=== PATIENT | male | born 1950 | race American Indian/Alaskan Native ===

== ENCOUNTER 2019-02-13 12:19 | Inpatient (IN) | payer MEDICARE ==
--- NOTE | 2019-02-13 12:42 | Event Note ---
ED Screening Note ED Screening Note: pt presents with generalized weakness 4 days ago +dizziness, +room spinning nausea denies any unilateral weakness pt is from [place] no V/D denies CALLEJAS denies vision changes PMHx HTN, HIV on antivirals This initial assessment/diagnostic orders/clinical plan/treatment(s) is/are subject to change based on patients health status, clinical progression and re- assessment by fellow clinical providers in the ED. Further treatment and workup at subsequent clinical providers discretion. Patient/guardian urged not to elope from the ED as their condition may be serious if not clinically assessed and managed. Initial orders include: labs, EKG, CT head, UA
[2019-02-13 13:17] LABS: Basophils % (Auto) 0.6 % (0.0-1.8); Eosinophils # (Auto) 0.3 K/mm3 (0.0-0.4); Eosinophils % (Auto) 4.4 % (0.0-4.3); Hematocrit 42.9 % (35.5-45.6); Hemoglobin 13.7 gm/dl (11.8-15.2); Lymphocytes # (Auto) 2.1 K/mm3 (1.2-5.4); Lymphocytes % (Auto) 30.6 % (13.4-35.0); Mean Corpuscular HGB Conc 32 % (32-34); Mean Corpuscular Volume 77 fl (84-94); Monocytes # (Auto) 0.5 K/mm3 (0.0-0.8); Monocytes % (Auto) 7.6 % (0.0-7.3); Platelet Count 279 K/mm3 (140-440); Red Cell Distribution Width 17.4 % (13.2-15.2)
[2019-02-13 13:25] LABS: Mucus,Urine FEW /HPF
[2019-02-13 13:26] LABS: Bilirubin,Urine NEG (Negative); Blood,Urine NEG (Negative); Color,Urine Yellow (Yellow); Urobilinogen,Urine < 2.0 mg/dL (<2.0)
[2019-02-13 13:47] LABS: Alanine Aminotransferase 24 units/L (7-56); Albumin 3.9 g/dL (3.9-5); BUN/Creatinine Ratio 9; Blood Urea Nitrogen 11 mg/dL (9-20); Calcium 9.3 mg/dL (8.4-10.2); Hemolysis Index 7
[2019-02-13] MEDS ORDERED: ZOFRAN IV ONE (14:17)
[2019-02-13] MEDS ORDERED: NACL 0.9% 1000 ML 1,000 ML IV ONE (14:17)
[2019-02-13] MEDS ORDERED: ANTIVERT PO ONE (14:17)
--- NOTE | 2019-02-13 14:30 | Cat Scan Report ---
CT HEAD WITHOUT CONTRAST INDICATION : Dizziness for 4 or 5 days. TECHNIQUE: Axial imaging performed from the skull apex through the skull base without the use of con trast. Sagittal and coronal reformatted images. All CT scans at this location are performed using C T dose reduction for ALARA by means of automated exposure control. COMPARISON: None FINDINGS: Parenchyma: Minimal nonspecific chronic ischemic changes in the white matter are identified which ap pears appropriate for this patient's age. The remaining brain parenchyma demonstrates normal attenuat ion. No evidence for hemorrhage, mass, acute infarct or extra-axial fluid collection. Ventricles: Ventricles are normal in size and appear symmetric. Bones: No acute osseous abnormality. Sinuses: There is mild mucosal thickening throughout the left sphenoid sinus. The remaining sinuses and mastoid air cells are well-aerated. Soft tissues: Soft tissues including the orbits appear normal. IMPRESSION: Mild nonspecific chronic white matter changes. No acute intracranial process. Mild chroni c left sphenoid sinusitis. Signer Name: Armani Mart Jr, MD Signed: 02/13/2019 2:26 PM Workstation Name: [id number]
--- NOTE | 2019-02-13 14:36 | Emergency Department Report ---
ED General Adult HPI - General Chief complaint: Weakness Stated complaint: WEAKNESS/NAUSEA Time Seen by Provider: 02/13/19 12:40 Source: patient Mode of arrival: Ambulatory Limitations: No Limitations - History of Present Illness Initial comments: pt is a 68 yo male who presents with generalized weakness that began 4 days ago. states he has associated dizziness that feels like the room is spinning. pt endorses nausea. he denies any unilateral weakness,numbness, CALLEJAS, vision changes. pt is from [facility]. PMHx HTN, HIV on antivirals. Pt states he just got back on his antivirals 4 days ago and began to experience the symptoms after, he states he has been taking it on an empty stomach even though it says to take with food, he states he believes thats why he is having symptoms. pt also uses crack cocaine, last used 6 days ago, states he previously [facility]," states he had a normal stress test about 3 years ago. pt denies any hx of VT, denies any stents. - Related Data Home Medications Medication Instructions Recorded Confirmed Last Taken Atazanavir [Reyataz] 300 mg PO DAILY 02/13/19 02/13/19 1 Day Ago ~02/12/19 AtorvaSTATin [Lipitor] 10 mg PO QDAY 02/13/19 02/13/19 1 Day Ago ~02/12/19 Emtricitabine/Tenofov Alafenam 1 tab PO QDAY 02/13/19 02/13/19 1 Day Ago [Descovy 200-25 mg Tablet] ~02/12/19 Ritonavir [Norvir] 100 mg PO QDAY 02/13/19 02/13/19 1 Day Ago ~02/12/19 Sulfamethoxazole/Trimethoprim 1 each PO QDAY 02/13/19 02/13/19 1 Day Ago [Bactrim DS TAB] ~02/12/19 Umeclidinium [place] [Incruse 62.5 mcg IH QDAY 02/13/19 02/13/19 1 Day Ago Ellipta 62.5MCG] ~02/12/19 amLODIPine [Norvasc] 10 mg PO DAILY 02/13/19 02/13/19 2 Days Ago ~02/11/19 Allergies Allergy/AdvReac Type Severity Reaction Status Date / Time No Known Allergies Allergy Verified 08/13/19 17:32 ED Review of Systems ROS: Stated complaint: WEAKNESS/NAUSEA Other details as noted in HPI Comment: All other systems reviewed and negative ED Past Medical Hx - Past Medical History Previous Medical History?: Yes Hx HIV: Yes - Social History Smoking Status: Current Every Day Smoker Substance Use Type: None - Medications Home Medications: Home Medications Medication Instructions Recorded Confirmed Last Taken Type Atazanavir [Reyataz] 300 mg PO DAILY 02/13/19 02/13/19 1 Day Ago History ~02/12/19 AtorvaSTATin [Lipitor] 10 mg PO QDAY 02/13/19 02/13/19 1 Day Ago History ~02/12/19 Emtricitabine/Tenofov Alafenam 1 tab PO QDAY 02/13/19 02/13/19 1 Day Ago History [Descovy 200-25 mg Tablet] ~02/12/19 Ritonavir [Norvir] 100 mg PO QDAY 02/13/19 02/13/19 1 Day Ago History ~02/12/19 Sulfamethoxazole/Trimethoprim 1 each PO QDAY 02/13/19 02/13/19 1 Day Ago History [Bactrim DS TAB] ~02/12/19 Umeclidinium [place] [Incruse 62.5 mcg IH QDAY 02/13/19 02/13/19 1 Day Ago History Ellipta 62.5MCG] ~02/12/19 amLODIPine [Norvasc] 10 mg PO DAILY 02/13/19 02/13/19 2 Days Ago History ~02/11/19 ED Physical Exam - General Limitations: No Limitations General appearance: alert, in no apparent distress - Head Head exam: Present: atraumatic, normocephalic - Eye Eye exam: Present: normal appearance, PERRL, EOMI. Absent: nystagmus, periorbital swelling, periorbital tenderness - ENT ENT exam: Present: normal orophraynx, mucous membranes moist - Respiratory Respiratory exam: Present: normal lung sounds bilaterally. Absent: respiratory distress, wheezes, rales, rhonchi, stridor, chest wall tenderness, accessory muscle use, decreased breath sounds, prolonged expiratory - Cardiovascular Cardiovascular Exam: Present: regular rate, normal rhythm, normal heart sounds. Absent: systolic murmur, diastolic murmur, rubs, gallop - Neurological Exam Neurological exam: Present: alert, oriented X3, CN II-XII intact, normal gait. Absent: motor sensory deficit - Psychiatric Psychiatric exam: Present: normal affect, normal mood - Skin Skin exam: Present: warm, dry, intact ED Course Vital Signs 02/13/19 02/13/19 02/13/19 12:40 15:45 18:40 Temperature 97.8 F Pulse Rate 65 70 Respiratory 18 16 16 Rate Blood Pressure 137/89 148/76 [Left] O2 Sat by Pulse 98 98 Oximetry - Consultations Consultation #1: 02/13/19 16:[address] Mcnamara, hospitalist who will admit to the hospital and accept and resume care of patient, asked if I would bridge orders to tele and admit obs. ED Medical Decision Making - Lab Data Result diagrams: 02/13/19 12:48 02/13/19 12:48 Lab Results 02/13/19 02/13/19 02/13/19 Range/Units 12:48 12:48 12:48 WBC 6.8 (4.5-11.0) K/mm3 RBC 5.60 H (3.65-5.03) M/mm3 Hgb 13.7 (11.8-15.2) gm/dl Hct 42.9 (35.5-45.6) % MCV 77 L (84-94) fl MCH 24 L (28-32) pg MCHC 32 (32-34) % RDW 17.4 H (13.2-15.2) % Plt Count 279 (140-440) K/mm3 Lymph % (Auto) 30.6 (13.4-35.0) % [place] % (Auto) 7.6 H (0.0-7.3) % Eos % (Auto) 4.4 H (0.0-4.3) % Baso % (Auto) 0.6 (0.0-1.8) % Lymph # 2.1 (1.2-5.4) K/mm3 [place] # 0.5 (0.0-0.8) K/mm3 Eos # 0.3 (0.0-0.4) K/mm3 Baso # 0.0 (0.0-0.1) K/mm3 Seg Neutrophils % 56.8 (40.0-70.0) % Seg Neutrophils # 3.9 (1.8-7.7) K/mm3 Sodium 137 (137-145) mmol/L Potassium 4.6 (3.6-5.0) mmol/L Chloride 98.8 (98-107) mmol/L Carbon Dioxide 27 (22-30) mmol/L Anion Gap 16 mmol/L BUN 11 (9-20) mg/dL Creatinine 1.2 (0.8-1.5) mg/dL Estimated GFR > 60 ml/min BUN/Creatinine Ratio 9 % Glucose 106 H (75-100) mg/dL Calcium 9.3 (8.4-10.2) mg/dL Phosphorus 2.70 (2.5-4.5) mg/dL Magnesium 2.00 (1.7-2.3) mg/dL Total Bilirubin 2.30 H (0.1-1.2) mg/dL AST 27 (5-40) units/L ALT 24 (7-56) units/L Alkaline Phosphatase 67 (35-129) units/L CK-MB (CK-2) 4.9 H (0.0-4.0) ng/mL Troponin T 0.056 H (0.00-0.029) ng/mL Total Protein 8.1 (6.3-8.2) g/dL Albumin 3.9 (3.9-5) g/dL Albumin/Globulin Ratio 0.9 % Triglycerides 197 H (2-149) mg/dL Cholesterol 202 H (50-199) mg/dL LDL Cholesterol Direct 151 H (50-130) mg/dL HDL Cholesterol 39 L (40-59) mg/dL Cholesterol/HDL Ratio 5.17 % - EKG Data EKG shows normal: sinus rhythm Rate: normal - EKG Data 02/13/19 23:18 RBBB t wave inversion in the lateral leads 3:1 AV block - Medical Decision Making pt is a 68 yo male who presents with generalized weakness that began 4 days ago. states he has associated dizziness that feels like the room is spinning. pt endorses nausea. he denies any unilateral weakness,numbness, CALLEJAS, vision changes. pt is from [facility]. PMHx HTN, HIV on antivirals. Pt states he just got back on his antivirals 4 days ago and began to experience the symptoms after, he states he has been taking it on an empty stomach even though it says to take with food, he states he believes thats why he is having symptoms. pt also uses crack cocaine, last used 6 days ago, states he previously went [facility]," states he had a normal stress test about 3 years ago. pt denies any hx of VT, denies any stents. labs with trop of 0.056. EKG is abnormal with T wave inversion in the lateral leads, 3:1 AV block, and RBBB. CT of the head with no acute process. Discussed case with Dr. Mcnamara, hospitalist who will admit pt to the hospital, will accept and resume care of patient, asked to write bridge orders to tele. - Differential Diagnosis CVA, TIA, vertigo, arrhythmia, orthostatic hypotension, ACS Critical care attestation.: If time is entered above; I have spent that time in minutes in the direct care of this critically ill patient, excluding procedure time. ED Disposition Clinical Impression: Dizziness, Abnormal EKG, Cardiac enzymes elevated Disposition: DC-[id number] OP ADMIT IP TO THIS HOSP Is pt being admited?: Yes Does the pt Need Aspirin: Yes Condition: Stable
[2019-02-13 16:21] LABS: Creatine Kinase MB 4.9 ng/mL (0.0-4.0)
[2019-02-13] MEDS ORDERED: BABY ASPIRIN PO ONE (16:31)
[2019-02-13 16:49] LABS: Chol/HDL Ratio 5.17 %
[2019-02-13] MEDS ORDERED: TYLENOL PO PRN (22:23)
[2019-02-13] MEDS ORDERED: SODIUM CHLORIDE FLUSH SYRINGE 10 ML IV PRN (22:23)
[2019-02-13] MEDS ORDERED: DILAUDID IV PRN (22:23)
[2019-02-13] MEDS ORDERED: ZOFRAN IV PRN (22:23)
[2019-02-13] MEDS ORDERED: PERCOCET 5/325 PO PRN (22:23)
[2019-02-13] MEDS ORDERED: NACL 0.9% 1000 ML 1,000 ML IV SCH (23:00)
--- NOTE | 2019-02-14 03:23 | History and Physical Report ---
CHIEF COMPLAINT: 1. Weakness. 2. Chest pain of 4 days. HISTORY OF PRESENT ILLNESS: A 68-year-old male presents with generalized weakness since 4 days. Also, dizziness and occasional chest tightness. No weakness. No syncope. Chest tightness lasted for a few seconds. He is more worried about the generalized weakness. The patient has a history of hypertension and HIV, on antiretrovirals. No exacerbating or relieving factors. PAST MEDICAL HISTORY: Significant for HIV, hypertension, hyperlipidemia, and also COPD. CURRENT MEDICATIONS: Antiretrovirals and includes Ellipta inhaler, amlodipine 10 mg once a day. FAMILY HISTORY: Hypertension. REVIEW OF SYSTEMS: Significant for severe lower abdominal pain, suprapubic and left lower quadrant. Otherwise, review of systems negative. PHYSICAL EXAMINATION: GENERAL: Young elderly female, cooperative during the examination. VITAL SIGNS: Temperature is 97.8, pulse is 70, respirations are 16, blood pressure 148/76. HEENT: Unremarkable. Pupils equal and reactive. NECK: Supple, no lymphadenopathy, no thyromegaly. LUNGS: Clear to auscultation and percussion. Good air entry. CARDIOVASCULAR: S1, S2 heard. No gallop, no murmur, no rub. Apical impulse in left fifth intercostal space and midclavicular line. ABDOMEN: Soft and benign. No hepatosplenomegaly. No guarding, no rigidity. EXTREMITIES: Good pedal pulses. No pedal edema. CENTRAL NERVOUS SYSTEM: Alert and oriented x 4, nonfocal exam. LABORATORY DATA: Significant for white count of 6800, H and H is 13.7 and 42.9. Platelet count is 279,000. Electrolytes are normal. Troponin is 0.056. CK-MB 4.9, slightly high. Triglycerides are 197. Cholesterol is 202. EKG shows frequent PVCs. No ST-T wave elevations. Chest x-ray, head CT, no acute findings. ASSESSMENT AND PLAN: 1. Chest pain, rule out myocardial infarction, chest pain protocol. 2. Frequent premature ventricular contractions. Cardiology consulted. 3. Congestive heart failure by history, not on any medications. We will get echocardiogram for ejection fraction. 4. Human immunodeficiency virus. Continue antiretrovirals. 5. Hypertension. Continue antihypertensives. 6. Hyperlipidemia. Continue statins. 7. Deep venous thrombosis prophylaxis, Lovenox 40 mg subcutaneous daily. JOB# [id number] ANUM/KHUSHBU
[2019-02-14 05:11] LABS: Hematocrit 38.5 % (35.5-45.6); Hemoglobin 12.5 gm/dl (11.8-15.2); Mean Corpuscular HGB Conc 32 % (32-34); Mean Corpuscular Volume 76 fl (84-94); Platelet Count 251 K/mm3 (140-440); Red Blood Count 5.04 M/mm3 (3.65-5.03); Red Cell Distribution Width 17.6 % (13.2-15.2)
[2019-02-14 05:20] LABS: Alanine Aminotransferase 19 units/L (7-56); Albumin 3.4 g/dL (3.9-5); BUN/Creatinine Ratio 9; Blood Urea Nitrogen 11 mg/dL (9-20); Calcium 8.8 mg/dL (8.4-10.2); Hemolysis Index 4
[2019-02-14] MEDS ORDERED: LEXISCAN IV ONE (07:13)
[2019-02-14 07:29] LABS: Basophils % (Manual) 0 % (0.0-1.8); Total Cells Counted 100
[2019-02-14 07:30] LABS: Anisocytosis 1+; Hypochromasia Few; Platelet Estimate Consistent w Auto; Schistocytes Rare
[2019-02-14] MEDS ORDERED: UMECLIDINIUM BROMIDE 62.5 MCG IH SCH (10:00)
[2019-02-14] MEDS ORDERED: PEPCID PO SCH (10:00)
[2019-02-14] MEDS ORDERED: REYATAZ PO SCH (10:00)
[2019-02-14] MEDS ORDERED: BACTRIM DS PO SCH (10:00)
[2019-02-14] MEDS ORDERED: EMTRICITABINE PO SCH (10:00)
[2019-02-14] MEDS ORDERED: TENOFOV ALAFENAM PO SCH (10:00)
[2019-02-14] MEDS ORDERED: NORVIR PO SCH (10:00)
[2019-02-14] MEDS ORDERED: SODIUM CHLORIDE FLUSH SYRINGE 10 ML IV SCH (10:00)
[2019-02-14] MEDS ORDERED: NORVASC PO SCH (10:00)
--- NOTE | 2019-02-14 10:20 | Consultation ---
History of Present Illness Consult date: 02/14/19 Consult reason: other (weakness) History of present illness: pt is a 68 yo male who presents with generalized weakness that began 4 days ago. The patient states he has associated dizziness that feels like the room is spinning, as well as nausea. he denies any unilateral weakness,numbness, CALLEJAS, vision changes. PMHx HTN, HIV on antivirals, and cocaine use. pt also uses crack cocaine, last used 6 days ago, states he previously went to the [facility]," states he had a normal stress test about 3 years ago. pt denies orthopnea, pnd, palpitations, dizziness or syncope. Patient does have some shortness of breath on exertion. Past History Past Medical History: HIV/AIDS, hypertension Past Surgical History: No surgical history Social history: other (cocaine use) Family history: no significant family history Medications and Allergies Allergies Allergy/AdvReac Type Severity Reaction Status Date / Time No Known Allergies Allergy Verified 02/13/19 17:32 Home Medications Medication Instructions Recorded Confirmed Last Taken Type Atazanavir [Reyataz] 300 mg PO DAILY 02/13/19 02/13/19 1 Day Ago History ~02/12/19 AtorvaSTATin [Lipitor] 10 mg PO QDAY 02/13/19 02/13/19 1 Day Ago History ~02/12/19 Emtricitabine/Tenofov Alafenam 1 tab PO QDAY 02/13/19 02/13/19 1 Day Ago History [Descovy 200-25 mg Tablet] ~02/12/19 Ritonavir [Norvir] 100 mg PO QDAY 02/13/19 02/13/19 1 Day Ago History ~02/12/19 Sulfamethoxazole/Trimethoprim 1 each PO QDAY 02/13/19 02/13/19 1 Day Ago History [Bactrim DS TAB] ~02/12/19 Umeclidinium [place] [Incruse 62.5 mcg IH QDAY 02/13/19 02/13/19 1 Day Ago History Ellipta 62.5MCG] ~02/12/19 amLODIPine [Norvasc] 10 mg PO DAILY 02/13/19 02/13/19 2 Days Ago History ~02/11/19 Active Meds: Active Medications Acetaminophen (Tylenol) 650 mg PO Q4H PRN PRN Reason: Pain MILD(1-3)/Fever >100.5/CALLEJAS Amlodipine Besylate (Norvasc) 10 mg PO DAILY [facility] Atazanavir (Reyataz) 300 mg PO DAILY [facility] Atorvastatin Calcium (Lipitor) 10 mg PO QDAY [facility] Famotidine (Pepcid) 20 mg PO BID [facility] Hydromorphone HCl (Dilaudid) 0.5 mg IV Q3H PRN PRN Reason: Pain , Severe (7-10) Sodium Chloride (Nacl 0.9% 1000 Ml) 1,000 mls @ 75 mls/hr IV DIRECT JOSÉ LUIS Last Admin: 02/14/19 00:40 Dose: 75 mls/hr Documented by: Miscellaneous Medication (Emtricitabine/Tenofov Alafenam [Descovy 200-25 Mg Tablet]) 1 tab PO QDAY [facility] Miscellaneous Medication (Umeclidinium [place] [Incruse Ellipta 62.5mcg]) 62.5 mcg IH QDAY [facility] Ondansetron HCl (Zofran) 4 mg IV Q8H PRN PRN Reason: Nausea And Vomiting Oxycodone/Acetaminophen (Percocet 5/325) 1 tab PO Q6H PRN PRN Reason: Pain, Moderate (4-6) Ritonavir (Norvir) 100 mg PO QDAY [facility] Sodium Chloride (Sodium Chloride Flush Syringe 10 Ml) 10 ml IV BID [facility] Sodium Chloride (Sodium Chloride Flush Syringe 10 Ml) 10 ml IV PRN PRN PRN Reason: LINE FLUSH Trimethoprim/Sulfamethoxazole (Bactrim Ds) 1 each PO QDAY [facility] Review of Systems All systems: negative (pertinent positives in HPI) Physical Examination Vital Signs Temp Pulse Resp BP Pulse Ox 97.8 F 65 18 137/89 98 02/13/19 12:40 02/13/19 12:40 02/13/19 12:40 02/13/19 12:40 02/13/19 12:40 General appearance: no acute distress HEENT: Positive: PERRL Neck: Positive: neck supple Cardiac: Positive: Reg Rate and Rhythm, S1/S2 Lungs: Positive: clear to auscultation Neuro: Positive: Grossly Intact Abdomen: Positive: Soft Extremities: Absent: edema Results 02/14/19 03:45 02/14/19 03:45 Cardiac Enzymes 02/13/19 02/13/19 02/14/19 Range/Units 12:48 12:48 03:45 AST 27 22 (5-40) units/L CK-MB (CK-2) 4.9 H (0.0-4.0) ng/mL Lipids 02/13/19 Range/Units 12:48 Triglycerides 197 H (2-149) mg/dL Cholesterol 202 H (50-199) mg/dL HDL Cholesterol 39 L (40-59) mg/dL Cholesterol/HDL Ratio 5.17 % CBC 02/13/19 02/14/19 Range/Units 12:48 03:45 WBC 6.8 6.1 (4.5-11.0) K/mm3 RBC 5.60 H 5.04 H (3.65-5.03) M/mm3 Hgb 13.7 12.5 (11.8-15.2) gm/dl Hct 42.9 38.5 (35.5-45.6) % Plt Count 279 251 (140-440) K/mm3 Lymph # 2.1 (1.2-5.4) K/mm3 [place] # 0.5 (0.0-0.8) K/mm3 Eos # 0.3 (0.0-0.4) K/mm3 Baso # 0.0 (0.0-0.1) K/mm3 Comprehensive Metabolic Panel 02/13/19 02/14/19 Range/Units 12:48 03:45 Sodium 137 141 (137-145) mmol/L Potassium 4.6 4.5 (3.6-5.0) mmol/L Chloride 98.8 104.1 (98-107) mmol/L Carbon Dioxide 27 26 (22-30) mmol/L BUN 11 11 (9-20) mg/dL Creatinine 1.2 1.2 (0.8-1.5) mg/dL Glucose 106 H 87 (75-100) mg/dL Calcium 9.3 8.8 (8.4-10.2) mg/dL AST 27 22 (5-40) units/L ALT 24 19 (7-56) units/L Alkaline Phosphatase 67 60 (35-129) units/L Total Protein 8.1 7.2 (6.3-8.2) g/dL Albumin 3.9 3.4 L (3.9-5) g/dL Assessment and Plan 1. fatigue and shortness of breath - planned for stress test today 2. HTN - maximize antihypertensive therapy 3. history of cocaine use - check echo for CMP 4. HIV - management per primary/ID
--- NOTE | 2019-02-14 12:27 | Progress Note ---
Hospitalist Physical - Constitutional Vitals: Temp Pulse Resp BP Pulse Ox 97.9 F 100 H 18 144/81 96 02/14/19 08:06 02/14/19 11:47 02/14/19 08:06 02/14/19 11:47 02/14/19 08:06 General appearance: Present: no acute distress Results - Labs CBC & Chem 7: 02/14/19 03:45 02/14/19 03:45 Labs: Laboratory Last Values WBC 6.1 K/mm3 (4.5-11.0) 02/14/19 03:45 RBC 5.04 M/mm3 (3.65-5.03) H 02/14/19 03:45 Hgb 12.5 gm/dl (11.8-15.2) 02/14/19 03:45 Hct 38.5 % (35.5-45.6) 02/14/19 03:45 MCV 76 fl (84-94) L 02/14/19 03:45 MCH 25 pg (28-32) L 02/14/19 03:45 MCHC 32 % (32-34) 02/14/19 03:45 RDW 17.6 % (13.2-15.2) H 02/14/19 03:45 Plt Count 251 K/mm3 (140-440) 02/14/19 03:45 Lymph % (Auto) 30.6 % (13.4-35.0) 02/13/19 12:48 [place] % (Auto) 7.6 % (0.0-7.3) H 02/13/19 12:48 Eos % (Auto) 4.4 % (0.0-4.3) H 02/13/19 12:48 Baso % (Auto) 0.6 % (0.0-1.8) 02/13/19 12:48 Lymph # 2.1 K/mm3 (1.2-5.4) 02/13/19 12:48 [place] # 0.5 K/mm3 (0.0-0.8) 02/13/19 12:48 Eos # 0.3 K/mm3 (0.0-0.4) 02/13/19 12:48 Baso # 0.0 K/mm3 (0.0-0.1) 02/13/19 12:48 Add Manual Diff Complete 02/14/19 03:45 Total Counted 100 02/14/19 03:45 Seg Neutrophils % 56.8 % (40.0-70.0) 02/13/19 12:48 Seg Neuts % (Manual) 57.0 % (40.0-70.0) 02/14/19 03:45 0 % 02/14/19 03:45 36.0 % (13.4-35.0) H 02/14/19 03:45 Reactive Lymphs % (Man) 0 % 02/14/19 03:45 5.0 % (0.0-7.3) 02/14/19 03:45 2.0 % (0.0-4.3) 02/14/19 03:45 0 % (0.0-1.8) 02/14/19 03:45 0 % 02/14/19 03:45 0 % 02/14/19 03:45 0 % 02/14/19 03:45 0 % 02/14/19 03:45 Nucleated RBC % Not Reportable 02/14/19 03:45 Seg Neutrophils # 3.9 K/mm3 (1.8-7.7) 02/13/19 12:48 Seg Neutrophils # Man 3.5 K/mm3 (1.8-7.7) 02/14/19 03:45 Band Neutrophils # 0.0 K/mm3 02/14/19 03:45 2.2 K/mm3 (1.2-5.4) 02/14/19 03:45 Abs React Lymphs (Man) 0.0 K/mm3 02/14/19 03:45 0.3 K/mm3 (0.0-0.8) 02/14/19 03:45 0.1 K/mm3 (0.0-0.4) 02/14/19 03:45 0.0 K/mm3 (0.0-0.1) 02/14/19 03:45 0.0 K/mm3 02/14/19 03:45 0.0 K/mm3 02/14/19 03:45 0.0 K/mm3 02/14/19 03:45 Blast Cells # 0.0 K/mm3 02/14/19 03:45 WBC Morphology Not Reportable 02/14/19 03:45 Hypersegmented Neuts Not Reportable 02/14/19 03:45 Hyposegmented Neuts Not Reportable 02/14/19 03:45 Hypogranular Neuts Not Reportable 02/14/19 03:45 Not Reportable 02/14/19 03:45 Not Reportable 02/14/19 03:45 Not Reportable 02/14/19 03:45 Not Reportable 02/14/19 03:45 Not Reportable 02/14/19 03:45 Not Reportable 02/14/19 03:45 Consistent w auto 02/14/19 03:45 Not Reportable 02/14/19 03:45 Plt Clumps, EDTA Not Reportable 02/14/19 03:45 Not Reportable 02/14/19 03:45 Not Reportable 02/14/19 03:45 Not Reportable 02/14/19 03:45 Plt Morphology Comment Not Reportable 02/14/19 03:45 RBC Morphology Not Reportable 02/14/19 03:45 Dimorphic RBCs Not Reportable 02/14/19 03:45 Not Reportable 02/14/19 03:45 Few 02/14/19 03:45 Not Reportable 02/14/19 03:45 1+ 02/14/19 03:45 Not Reportable 02/14/19 03:45 Not Reportable 02/14/19 03:45 Not Reportable 02/14/19 03:45 Not Reportable 02/14/19 03:45 Not Reportable 02/14/19 03:45 Not Reportable 02/14/19 03:45 Not Reportable 02/14/19 03:45 Not Reportable 02/14/19 03:45 Not Reportable 02/14/19 03:45 Not Reportable 02/14/19 03:45 Not Reportable 02/14/19 03:45 Not Reportable 02/14/19 03:45 Not Reportable 02/14/19 03:45 Not Reportable 02/14/19 03:45 Not Reportable 02/14/19 03:45 Acanthocytes (Spur) Not Reportable 02/14/19 03:45 Rouleaux Not Reportable 02/14/19 03:45 Not Reportable 02/14/19 03:45 Rare 02/14/19 03:45 Not Reportable 02/14/19 03:45 Not Reportable 02/14/19 03:45 Hem Pathologist Commnt No 02/14/19 03:45 Sodium 141 mmol/L (137-145) 02/14/19 03:45 Potassium 4.5 mmol/L (3.6-5.0) 02/14/19 03:45 Chloride 104.1 mmol/L (98-107) 02/14/19 03:45 Carbon Dioxide 26 mmol/L (22-30) 02/14/19 03:45 15 mmol/L 02/14/19 03:45 BUN 11 mg/dL (9-20) 02/14/19 03:45 1.2 mg/dL (0.8-1.5) 02/14/19 03:45 Estimated GFR > 60 ml/min 02/14/19 03:45 9 % 02/14/19 03:45 Glucose 87 mg/dL (75-100) 02/14/19 03:45 6.4 % (4-6) H 02/13/19 23:03 Calcium 8.8 mg/dL (8.4-10.2) 02/14/19 03:45 Phosphorus 2.70 mg/dL (2.5-4.5) 02/13/19 12:48 Magnesium 2.00 mg/dL (1.7-2.3) 02/13/19 12:48 2.10 mg/dL (0.1-1.2) H 02/14/19 03:45 AST 22 units/L (5-40) 02/14/19 03:45 ALT 19 units/L (7-56) 02/14/19 03:45 60 units/L (35-129) 02/14/19 03:45 CK-MB (CK-2) 4.9 ng/mL (0.0-4.0) H 02/13/19 12:48 0.056 ng/mL (0.00-0.029) H 02/13/19 12:48 7.2 g/dL (6.3-8.2) 02/14/19 03:45 3.4 g/dL (3.9-5) L 02/14/19 03:45 0.9 % 02/14/19 03:45 Triglycerides 197 mg/dL (2-149) H 02/13/19 12:48 Cholesterol 202 mg/dL (50-199) H 02/13/19 12:48 151 mg/dL (50-130) H 02/13/19 12:48 39 mg/dL (40-59) L 02/13/19 12:48 5.17 % 02/13/19 12:48 Yellow (Yellow) 02/13/19 Unknown Clear (Clear) 02/13/19 Unknown 6.0 (5.0-7.0) 02/13/19 Unknown Ur Specific [place] 1.019 (1.003-1.030) 02/13/19 Unknown 100 mg/dl mg/dL (Negative) 02/13/19 Unknown Neg mg/dL (Negative) 02/13/19 Unknown Neg mg/dL (Negative) 02/13/19 Unknown Neg (Negative) 02/13/19 Unknown Neg (Negative) 02/13/19 Unknown Ur Reducing Substances Not Reportable 02/13/19 Unknown Neg (Negative) 02/13/19 Unknown Not Reportable 02/13/19 Unknown < 2.0 mg/dL (<2.0) 02/13/19 Unknown Ur Leukocyte Esterase Neg (Negative) 02/13/19 Unknown 1.0 /HPF (0.0-6.0) 02/13/19 Unknown 2.0 /HPF (0.0-6.0) 02/13/19 Unknown U Epithel Cells (Auto) 1.0 /HPF (0-13.0) 02/13/19 Unknown Few /HPF 02/13/19 Unknown Active Medications - Current Medications Current Medications: Generic Name Dose Route Start Last Admin Trade Name Freq PRN Reason Stop Dose Admin Acetaminophen 650 mg 02/13/19 22:23 Tylenol PO Q4H PRN Pain MILD(1-3)/Fever >100.5/CALLEJAS Amlodipine Besylate 10 mg 02/14/19 10:00 02/14/19 11:47 Norvasc PO 10 mg DAILY JOSÉ LUIS Administration Atazanavir 300 mg 02/14/19 10:00 Reyataz PO DAILY JOSÉ LUIS Atorvastatin Calcium 10 mg 02/14/19 10:00 02/14/19 11:46 Lipitor PO 10 mg QDAY JOSÉ LUIS Administration Famotidine 20 mg 02/14/19 10:00 02/14/19 11:46 Pepcid PO 20 mg BID JOSÉ LUIS Administration Hydromorphone HCl 0.5 mg 02/13/19 22:23 Dilaudid IV Q3H PRN Pain , Severe (7-10) Sodium Chloride 1,000 mls @ 75 mls/hr 02/13/19 23:00 02/14/19 00:40 Nacl 0.9% 1000 Ml IV 75 mls/hr DIRECT JOSÉ LUIS Administration Miscellaneous Medication 1 tab 02/14/19 10:00 Emtricitabine/Tenofov Alafenam [Descovy 200-25 Mg Tablet] PO QDAY JOSÉ LUIS Miscellaneous Medication 62.5 mcg 02/14/19 10:00 Umeclidinium [place] [Incruse Ellipta 62.5mcg] IH QDAY JOSÉ LUIS Ondansetron HCl 4 mg 02/13/19 22:23 Zofran IV Q8H PRN Nausea And Vomiting Oxycodone/Acetaminophen 1 tab 02/13/19 22:23 Percocet 5/325 PO Q6H PRN Pain, Moderate (4-6) Ritonavir 100 mg 02/14/19 10:00 Norvir PO QDAY JOSÉ LUIS Sodium Chloride 10 ml 02/14/19 10:00 02/14/19 11:47 Sodium Chloride Flush Syringe 10 Ml IV 10 ml BID JOSÉ LUIS Administration Sodium Chloride 10 ml 02/13/19 22:23 Sodium Chloride Flush Syringe 10 Ml IV PRN PRN LINE FLUSH Trimethoprim/Sulfamethoxazole 1 each 02/14/19 10:00 02/14/19 11:46 Bactrim Ds PO 1 each QDAY JOSÉ LUIS Administration
[2019-02-14 12:44] VITALS: BP 158/83
--- NOTE | 2019-02-14 16:31 | Discharge Summary ---
Providers - Providers Date of Admission: 02/14/19 09:57 Date of discharge: 02/14/19 Attending physician: BRIANDA RUBIO 02/13/19 22:23 Consult to Physician [CONS] Routine Comment: Consulting Provider: TISHA ANDINO Physician Instructions: Reason For Exam: frequent PVCs Primary care physician: SHEILA TRINH Hospitalization Condition: Fair Disposition: DC-01 TO HOME OR SELFCARE Exam - Constitutional Vitals: Temp Pulse Resp BP Pulse Ox 97.8 F 71 18 158/83 96 02/14/19 12:33 02/14/19 12:33 02/14/19 12:33 02/14/19 12:33 02/14/19 12:33 Plan Activity: advance as tolerated Diet: low fat, low cholesterol, low salt Plan of Treatment: 1.Follow up with PCP in 1 week. Assessment: 1.Chest pain, non-cardiac, due to GERD. Follow up with: SHEILA TRINH MD [Primary Care Provider] - 3-5 Days Prescriptions: Famotidine [Pepcid] 20 mg PO BID #30 tablet
--- NOTE | 2019-02-16 01:32 | Treadmill Report ---
THALLIUM STRESS TEST. LEFT VENTRICLE: Left ventricle is moderately to severely dilated. Perfusion study demonstrates a fixed inferior defect of mild intensity, minimal to no significant reversibility on the resting study. Gated analysis demonstrates severe left ventricular systolic dysfunction, ejection fraction 26%. CONCLUSION: Evidence of a severe dilated cardiomyopathy, with severe left ventricular systolic dysfunction. The inferior perfusion defect of mild intensity may represent diaphragmatic attenuation artifact, clinical correlation is recommended. [facility]# [id number] [place]/NTS
== END 2019-02-14 17:27 | disposition home or self-care (01) | DRG 392 ==
LOC: ED 12:19 → 4A 16:31 → OBSVTOIN 02-14 09:57
PROVIDERS: ADMIT Internal Medicine; ATTEND Internal Medicine
DX: K21.9 Gastro-esophageal reflux disease without esophagitis (principal); R42 Dizziness and giddiness; R07.89 Other chest pain; I49.3 Ventricular premature depolarization; I50.9 Heart failure, unspecified; Z21 Asymptomatic human immunodeficiency virus [HIV] infection status; F17.210 Nicotine dependence, cigarettes, uncomplicated; I11.0 Hypertensive heart disease with heart failure; E78.5 Hyperlipidemia, unspecified
CPT/HCPCS: 36415; 70450; 78452; 80053; 80061; 81001; 82553; 83036; 83735; 84100; 84484; 85007; 85025; 93005; 93010; 93017; 93306; 96361; 96374; 99406; G0378; A9270-GY; A9502; J2405; J2785; J7030

== ENCOUNTER 2019-03-05 08:57 | Emergency (ER) | payer MEDICARE ==
[2019-03-05 09:57] LABS: Albumin 4.2 g/dL (3.9-5); Calcium 9.5 mg/dL (8.4-10.2)
[2019-03-05 10:01] LABS: Bilirubin,Urine NEG (Negative); Blood,Urine NEG (Negative); Color,Urine Amber (Yellow); Mucus,Urine FEW /HPF
[2019-03-05 10:05] LABS: Basophils # (Auto) 0.1 K/mm3 (0.0-0.1); Basophils % (Auto) 0.7 % (0.0-1.8); Eosinophils # (Auto) 0.4 K/mm3 (0.0-0.4); Eosinophils % (Auto) 5.1 % (0.0-4.3); Hematocrit 42.7 % (35.5-45.6); Hemoglobin 13.9 gm/dl (11.8-15.2); Lymphocytes # (Auto) 1.8 K/mm3 (1.2-5.4); Lymphocytes % (Auto) 25.1 % (13.4-35.0); Mean Corpuscular HGB Conc 33 % (32-34); Mean Corpuscular Volume 76 fl (84-94); Monocytes # (Auto) 0.6 K/mm3 (0.0-0.8); Monocytes % (Auto) 8.6 % (0.0-7.3); Platelet Count 231 K/mm3 (140-440); Red Blood Count 5.61 M/mm3 (3.65-5.03); Red Cell Distribution Width 18.8 % (13.2-15.2)
[2019-03-05] MEDS ORDERED: DELTASONE PO ONE (10:06)
[2019-03-05] MEDS ORDERED: TORADOL IM ONE (10:06)
[2019-03-05] MEDS ORDERED: TORADOL IV ONE (10:10)
[2019-03-05] MEDS ORDERED: NACL 0.9% 1000 ML 1,000 ML IV ONE (10:10)
--- NOTE | 2019-03-05 10:33 | Emergency Department Report ---
ED Back Pain/Injury HPI - General Chief Complaint: Extremity Injury, Lower Stated Complaint: RT SIDE/LOWER BACK PAIN Time Seen by Provider: 03/05/19 09:21 Source: patient Limitations: No Limitations - History of Present Illness Initial Comments: This is a 68-year-old male nontoxic, well nourished in appearance, no acute signs of distress presents to the ED with c/o of acute right side flank and lower back pain. Patient denies any radiation of pain. Patient denies any trauma. Denies any bladder or bowel instability. Patient denies any urinary symptoms. Denies any fever, chills, nausea, vomiting, headache, stiff neck, chest pain or shortness of breath. Patient denies any numbness or tingling. Denies any allergies. MD Complaint: back pain, other (right flank pain) -: days(s) Similar Symptoms Previously: No Radiation: none Severity: mild Severity scale (0 -10): 8 Quality: aching Consistency: intermittent Improves With: immobilization, sitting upright Worsens With: movement, walking Associated Symptoms: denies other symptoms. denies: confusion, weakness, chest pain, numbness, difficulty walking, cough, difficulty urinating, diaphoresis, incontinence, fever/chills, constipation, headaches, abdominal pain, loss of appetite, malaise, nausea/vomiting, rash, seizure, shortness of breath, syncope - Related Data Home Medications Medication Instructions Recorded Confirmed Last Taken Atazanavir [Reyataz] 300 mg PO DAILY 02/13/19 02/13/19 1 Day Ago ~02/12/19 AtorvaSTATin [Lipitor] 10 mg PO QDAY 02/13/19 02/13/19 1 Day Ago ~02/12/19 Emtricitabine/Tenofov Alafenam 1 tab PO QDAY 02/13/19 02/13/19 1 Day Ago [Descovy 200-25 mg (Nf)] ~02/12/19 Ritonavir [Norvir] 100 mg PO QDAY 02/13/19 02/13/19 1 Day Ago ~02/12/19 Sulfamethoxazole/Trimethoprim 1 each PO QDAY 02/13/19 02/13/19 1 Day Ago [Bactrim DS TAB] ~02/12/19 Umeclidinium [place] [Incruse 62.5 mcg IH QDAY 02/13/19 02/13/19 1 Day Ago Ellipta 62.5MCG] ~02/12/19 amLODIPine [Norvasc] 10 mg PO DAILY 02/13/19 02/13/19 2 Days Ago ~02/11/19 Previous Rx's Medication Instructions Recorded Last Taken Type Famotidine [Pepcid] 20 mg PO BID #30 tablet 02/14/19 Unknown Rx Acetaminophen/Codeine [Tylenol 1 tab PO Q6H PRN #12 tab 03/05/19 Unknown Rx /Codeine # 3 tab] Allergies Allergy/AdvReac Type Severity Reaction Status Date / Time No Known Allergies Allergy Verified 02/13/19 17:32 ED Review of Systems ROS: Stated complaint: RT SIDE/LOWER BACK PAIN Other details as noted in HPI Constitutional: denies: chills, fever Eyes: denies: eye pain, eye discharge, vision change ENT: denies: ear pain, throat pain Respiratory: denies: cough, shortness of breath, wheezing Cardiovascular: denies: chest pain, palpitations Endocrine: no symptoms reported Gastrointestinal: denies: abdominal pain, nausea, diarrhea Genitourinary: denies: urgency, dysuria Musculoskeletal: back pain, other (flank pain). denies: joint swelling, arthralgia Skin: denies: rash, lesions Neurological: denies: headache, weakness, paresthesias Psychiatric: denies: anxiety, depression Hematological/Lymphatic: denies: easy bleeding, easy bruising ED Past Medical Hx - Past Medical History Hx Hypertension: Yes Hx Asthma: Yes Hx HIV: Yes - Surgical History Past Surgical History?: No - Social History Smoking Status: Current Every Day Smoker Substance Use Type: Alcohol, Cocaine, Other - Medications Home Medications: Home Medications Medication Instructions Recorded Confirmed Last Taken Type Atazanavir [Reyataz] 300 mg PO DAILY 02/13/19 02/13/19 1 Day Ago History ~02/12/19 AtorvaSTATin [Lipitor] 10 mg PO QDAY 02/13/19 02/13/19 1 Day Ago History ~02/12/19 Emtricitabine/Tenofov Alafenam 1 tab PO QDAY 02/13/19 02/13/19 1 Day Ago History [Descovy 200-25 mg (Nf)] ~02/12/19 Ritonavir [Norvir] 100 mg PO QDAY 02/13/19 02/13/19 1 Day Ago History ~02/12/19 Sulfamethoxazole/Trimethoprim 1 each PO QDAY 02/13/19 02/13/19 1 Day Ago History [Bactrim DS TAB] ~02/12/19 Umeclidinium [place] [Incruse 62.5 mcg IH QDAY 02/13/19 02/13/19 1 Day Ago History Ellipta 62.5MCG] ~02/12/19 amLODIPine [Norvasc] 10 mg PO DAILY 02/13/19 02/13/19 2 Days Ago History ~02/11/19 Famotidine [Pepcid] 20 mg PO BID #30 tablet 02/14/19 Unknown Rx Acetaminophen/Codeine [Tylenol 1 tab PO Q6H PRN #12 tab 03/05/19 Unknown Rx /Codeine # 3 tab] ED Physical Exam - General Limitations: No Limitations General appearance: alert, in no apparent distress - Head Head exam: Present: atraumatic, normocephalic - Neck Neck exam: Present: normal inspection, full ROM. Absent: tenderness, meningismus, lymphadenopathy - Respiratory Respiratory exam: Present: normal lung sounds bilaterally. Absent: respiratory distress, wheezes, rales, rhonchi, stridor, chest wall tenderness, accessory muscle use, decreased breath sounds, prolonged expiratory - Cardiovascular Cardiovascular Exam: Present: regular rate, normal rhythm, normal heart sounds. Absent: bradycardia, tachycardia, irregular rhythm, systolic murmur, diastolic murmur, rubs, gallop - GI/Abdominal GI/Abdominal exam: Present: soft, normal bowel sounds. Absent: distended, tenderness, guarding, rebound, rigid, diminished bowel sounds - Extremities Exam Extremities exam: Present: normal inspection, full ROM, normal capillary refill. Absent: tenderness - Back Exam Back exam: Present: normal inspection, full ROM, tenderness, paraspinal tenderness (right lumbar paraspinal). Absent: CVA tenderness (R), CVA tender ness (L), muscle spasm, vertebral tenderness, rash noted - Expanded Back Exam Expanded Back exam: Absent: saddle anesthesia Back exam: Negative Straight Leg Raising: Left, Right - Neurological Exam Neurological exam: Present: alert, oriented X3, normal gait - Psychiatric Psychiatric exam: Present: normal affect, normal mood - Skin Skin exam: Present: warm, dry, intact, normal color. Absent: rash ED Course Vital Signs 03/05/19 09:03 Temperature 97.7 F Pulse Rate 68 Respiratory 18 Rate Blood Pressure 130/76 O2 Sat by Pulse 99 Oximetry - Reevaluation(s) Reevaluation #1: 03/05/19 10:33 Patient is speaking in full sentences with no signs of distress noted. - Consultations Consultation #1: 03/05/19 10:33 Patient has been consulted with Constantin Martell about patient history, physical exam, and labs and agrees to ED plan of care and discharge plan of care. ED Medical Decision Making - Lab Data Result diagrams: 03/05/19 09:08 03/05/19 09:08 - Medical Decision Making This is a 68-year-old male that presents with right kidney stones. Patient is stable was examined by me. There is no spinal tenderness. There is no cauda equina syndrome during examination. No bladder or bowel instability. Patient received Toradol 60 mg IM and normal saline in the ED which staetd that his symptoms has resolved and subsided. Labs has been obtained. CT scan without contrast has been obtained and dictated by radiologist. Patient was notified of the CT results with no questions noted by the patient. Patient is discharged with Tylenol with Codeine and was instructed not to operate any machinery after discharge due to possible drowsiness. Patient was referred to Follow-up with a primary care and urologist doctor in 3-5 days or if symptoms worsen and continue return to emergency room as soon as possible. At time of discharge, the patient does not seem toxic or ill in appearance. No acute signs of distress noted. Patient agrees to discharge treatment plan of care. No further questions noted by the patient. This chart is dictated with using [employer] Dictation Program Critical care attestation.: If time is entered above; I have spent that time in minutes in the direct care of this critically ill patient, excluding procedure time. ED Disposition Clinical Impression: Right kidney stone, Bladder mass Disposition: DC-01 TO HOME OR SELFCARE Is pt being admited?: No Does the pt Need Aspirin: No Condition: Stable Instructions: Acetaminophen/Codeine (By mouth), Kidney Stones (ED) Additional Instructions: Follow-up with a primary care and urologist doctor in 3-5 days or if symptoms worsen and continue return to emergency room as soon as possible. . Do not operate any machinery while taking Tylenol with codeine as this may cause drowsiness. Prescriptions: Acetaminophen/Codeine [Tylenol /Codeine # 3 tab] 1 tab PO Q6H PRN #12 tab PRN Reason: Pain , Severe (7-10) Referrals: PRIMARY CARE, [Primary Care Provider] - 3-5 Days OKSANA ALVAREZ MD [Staff Physician] - 3-5 Days NAILA CARUSO MD [Staff Physician] - 3-5 Days [facility] [Outside] - 3-5 Days [facility] [Outside] - 3-5 Days Forms: Work/School Release Form(ED)
--- NOTE | 2019-03-05 11:41 | Cat Scan Report ---
CT abdomen pelvis wo con INDICATION / CLINICAL INFORMATION: MAIN: right flank pain NO CONTRAST. TECHNIQUE: All CT scans at this location are performed using CT dose reduction for ALARA by means of automated e xposure control. COMPARISON: None available. FINDINGS: No free fluid is seen in the abdomen. No stones are present in the kidneys. There is no evidence of h ydronephrosis. There is a tiny high density lesion in the superior pole the right kidney with small r ight renal cysts. The liver, spleen, pancreas and adrenal glands are normal. Atherosclerotic changes present with ectasia of the abdominal aorta. No large aneurysm is seen. In the pelvis, no free fluid is seen. The bladder wall is thickened and there is questionable soft ti ssue present on the left side of the bladder versus an enlarged prostate. No enlarged lymph nodes are identified. No significant skeletal abnormality is seen. IMPRESSION: 1. Bladder wall thickening. There is either a soft tissue mass on the left side of the bladder or an enlarged prostate compressing the bladder in this area 2. Tiny high density lesion in the superior pole of the right kidney with small right renal cysts 3. Atherosclerotic change with ectasia of the abdominal aorta. Signer Name: Dario Camejo MD FACR Signed: 03/05/2019 11:37 AM Workstation Name: [id number]
[2019-03-05 13:17] VITALS: BP 125/67
== END 2019-03-05 13:16 | disposition home or self-care (01) ==
LOC: ED 08:57
DX: N20.0 Calculus of kidney (principal); N32.89 Other specified disorders of bladder; I10 Essential (primary) hypertension; J45.909 Unspecified asthma, uncomplicated; F17.200 Nicotine dependence, unspecified, uncomplicated; F14.10 Cocaine abuse, uncomplicated; Z79.899 Other long term (current) drug therapy
CPT/HCPCS: 36415; 74176; 80053; 81001; 85025; 96374; 99284; J1885; J7030; 96361

== ENCOUNTER 2019-12-16 09:22 | Emergency (ER) | payer MEDICARE ==
--- NOTE | 2019-12-16 11:28 | Event Note ---
ED Screening Note ED Screening Note: generalized weakness and fatigue 4-5 days ago no cough + subjective fever states that he is at [facility] no n/v/d no SOB no CP no abd pain PMHx HIV, HTN, HLD +smoker +crack cocaine, last used 3 days ago no ETOH This initial assessment/diagnostic orders/clinical plan/treatment(s) is/are subject to change based on patients health status, clinical progression and re- assessment by fellow clinical providers in the ED. Further treatment and workup at subsequent clinical providers discretion. Patient/guardian urged not to elope from the ED as their condition may be serious if not clinically assessed and managed. Initial orders include: labs, CXR, EKG
[2019-12-16 12:17] LABS: Bacteria,Urine 1+ /HPF (Negative); Bilirubin,Urine NEG (Negative); Blood,Urine NEG (Negative); Color,Urine Amber (Yellow); Mucus,Urine FEW /HPF
[2019-12-16 12:21] LABS: Protein,Urine >500 mg/dL (Negative)
[2019-12-16 13:14] LABS: Basophils % (Auto) 0.3 % (0.0-1.8); Eosinophils # (Auto) 0.2 K/mm3 (0.0-0.4); Hematocrit 42.9 % (35.5-45.6); Hemoglobin 13.8 gm/dl (11.8-15.2); Lymphocytes # (Auto) 1.4 K/mm3 (1.2-5.4); Mean Corpuscular HGB Conc 32 % (32-34); Mean Corpuscular Volume 77 fl (84-94); Monocytes # (Auto) 0.8 K/mm3 (0.0-0.8); Monocytes % (Auto) 11.1 % (0.0-7.3); Platelet Count 267 K/mm3 (140-440); Red Blood Count 5.58 M/mm3 (3.65-5.03); Red Cell Distribution Width 17.8 % (13.2-15.2)
[2019-12-16 13:29] LABS: Alanine Aminotransferase 16 units/L (7-56); Albumin 3.4 g/dL (3.9-5); BUN/Creatinine Ratio 8; Blood Urea Nitrogen 9 mg/dL (9-20); Calcium 9.1 mg/dL (8.4-10.2); Hemolysis Index 3
--- NOTE | 2019-12-16 14:12 | XRay Report ---
CHEST 2 VIEWS INDICATION: fever, weakness. COMPARISON: None FINDINGS: SUPPORT DEVICES: None. HEART: Within normal limits. LUNGS/PLEURA: No acute air space or interstitial disease. No pneumothorax. ADDITIONAL FINDINGS: None. IMPRESSION: 1. No acute findings. Signer Name: Shaan Silva MD Signed: 12/16/2019 2:07 PM Workstation Name: [id number]
--- NOTE | 2019-12-16 15:09 | Emergency Department Report ---
HPI - General Chief Complaint: Weakness Time Seen by Provider: 12/16/19 11:25 - HPI HPI: 69-year-old -Greek male presents to the emergency department from [facility] with a complaint of a 3-day history of generalized weakness and fatigue. He has a history of hypertension, asthma, HIV and says he is compliant with his medications. He denies any fever, chest pain, shortness of breath, cough, headache, vision change, numbness. He has not taken anything for symptoms prior to presentation. The patient is currently at [facility] secondary to a history of crack cocaine abuse and last used it about 3 or 4 days ago. No recent travel or sick contacts at home. The patient was here in February of last year with similar symptoms. He was found to have a slightly elevated troponin and had a stress test that shows dilated cardiomyopathy but no ischemia. ED Past Medical Hx - Past Medical History Hx Hypertension: Yes Hx Asthma: Yes Hx HIV: Yes - Social History Smoking Status: Never Smoker Substance Use Type: Cocaine - Medications Home Medications: Home Medications Medication Instructions Recorded Confirmed Last Taken Type Atazanavir [Reyataz] 300 mg PO DAILY 02/13/19 02/13/19 1 Day Ago History ~02/12/19 AtorvaSTATin 10 mg PO QDAY 02/13/19 02/13/19 1 Day Ago History ~02/12/19 Emtricitabine/Tenofov Alafenam 1 tab PO QDAY 02/13/19 02/13/19 1 Day Ago History [Descovy 200-25 mg (Nf)] ~02/12/19 Ritonavir 100 mg PO QDAY 02/13/19 02/13/19 1 Day Ago History ~02/12/19 Sulfamethoxazole/Trimethoprim 1 each PO QDAY 02/13/19 02/13/19 1 Day Ago History [Bactrim DS TAB] ~02/12/19 Umeclidinium [place] [Incruse 62.5 mcg IH QDAY 02/13/19 02/13/19 1 Day Ago History Ellipta 62.5MCG] ~02/12/19 amLODIPine 10 mg PO DAILY 02/13/19 02/13/19 2 Days Ago History ~02/11/19 Famotidine [Pepcid] 20 mg PO BID #30 tablet 02/14/19 Unknown Rx Acetaminophen/Codeine [Tylenol 1 tab PO Q6H PRN #12 tab 03/05/19 Unknown Rx /Codeine # 3 tab] ED Review of Systems ROS: Stated complaint: WEAK/FATIQUE Other details as noted in HPI Comment: All other systems reviewed and negative Constitutional: weakness, other (fatigue). denies: chills, fever Eyes: denies: eye pain, vision change ENT: denies: ear pain, throat pain Respiratory: denies: cough, shortness of breath Cardiovascular: denies: chest pain, palpitations Gastrointestinal: denies: abdominal pain, vomiting Genitourinary: denies: dysuria, discharge Musculoskeletal: denies: back pain, arthralgia Skin: denies: rash, lesions Neurological: denies: headache, weakness Physical Exam - Physical Exam Vital Signs: Vital Signs 12/16/19 12/16/19 09:27 11:26 Temperature 97.9 F 98.4 F Pulse Rate 55 L 70 Respiratory 20 20 Rate Blood Pressure 124/70 Blood Pressure 128/74 [Left] O2 Sat by Pulse 98 98 Oximetry Physical Exam: GENERAL: The patient is well-developed well-nourished. HENT: Normocephalic. Atraumatic. Patient has moist mucous membranes. EYES: Extraocular motions are intact. NECK: Supple. Trachea is midline. CHEST/LUNGS: Clear to auscultation. There is no respiratory distress noted. HEART/CARDIOVASCULAR: Regular. There is no tachycardia. ABDOMEN: Abdomen is soft, nontender. Patient has normal bowel sounds. SKIN: Skin is warm and dry. NEURO: The patient is awake, alert, and oriented. The patient is cooperative. The patient has no focal neurologic deficits. Normal speech. Cranial nerves II through XII grossly intact. No pronator drift or dysmetria. MUSCULOSKELETAL: There is no tenderness or deformity. There is no limitation range of motion. There is no evidence of acute injury. ED Course Vital Signs 12/16/19 12/16/19 09:27 11:26 Temperature 97.9 F 98.4 F Pulse Rate 55 L 70 Respiratory 20 20 Rate Blood Pressure 124/70 Blood Pressure 128/74 [Left] O2 Sat by Pulse 98 98 Oximetry - Consultations Consultation #1: 12/16/19 17:08 I spoke with the medical geneticist on-call, Dr. Rousseau, regarding the patient's presentation and his slightly elevated troponin level. Since the patient is asymptomatic with the previous negative stress test, the patient is safe for discharge back to [facility] at this time. The patient will be given a referral to follow-up with [facility] this week. ED Medical Decision Making - Lab Data Result diagrams: 12/16/19 12:03 12/16/19 12:03 - EKG Data -: EKG Interpreted by Me EKG shows normal: sinus rhythm (PACs), axis (Left axis deviation), intervals, QRS complexes (Right bundle branch block, left anterior fascicular block), ST-T waves (T wave inversions to the lateral leads) Rate: normal - EKG Data When compared to previous EKG there are: no significant change Interpretation: unchanged when compared t (02/14/19) - Radiology Data Radiology results: image reviewed interpreted by me: Chest x-ray does not show any acute process. There are no pleural effusions, obvious pneumonia and there is no pneumothorax. - Medical Decision Making This patient presents from his drug rehabilitation with a complaint of a few days of some generalized weakness and/or fatigue. On examination he does not have any focal, motor or sensory deficits and his cranial nerves are intact. A chest x-ray was done through triage that does not show any pneumonia, pleural effusions, pneumothorax, or any other acute process. His EKG does not have any morphology consistent with ST elevation MO and is unchanged from previous with a right bundle branch block and left anterior fascicular block. Patient's labs have been mostly unremarkable except for a slightly elevated troponin level of 0.04. The patient has not had any chest pain, shortness of breath, back pain, near syncope. I spoke with the medical geneticist on-call who agrees that the patient appears safe for discharge home at this time with this borderline troponin level and they will see him in the office this coming week. The patient has been asking to be discharged. We discussed his labs, imaging and plan for outpatient cardiology follow-up and he understands and agrees. He will return to the emergency department with any worsening of his symptoms, development of chest pain or shortness of breath, or with any acute distress. Critical Care Time: No Critical care attestation.: If time is entered above; I have spent that time in minutes in the direct care of this critically ill patient, excluding procedure time. ED Disposition Clinical Impression: Generalized weakness Fatigue Qualifiers: Fatigue type: unspecified Qualified Code(s): R53.83 - Other fatigue Disposition: - TO HOME OR SELFCARE Is pt being admited?: No Condition: Stable Instructions: Weakness (ED), Fatigue (ED) Additional Instructions: I have given you a referral for [facility] and you should follow- up with them. Return to the emergency department immediately with any chest pain, shortness of breath, worsening of your symptoms, or with any acute distress. Referrals: TISHA ANDINO MD [Staff Physician] - 3-5 Days Time of Disposition: 17:10
[2019-12-16 16:50] LABS: Chol/HDL Ratio 3.67 %
[2019-12-16 17:17] VITALS: BP 130/74
== END 2019-12-16 17:17 | disposition home or self-care (01) ==
LOC: ED 09:22
DX: R53.1 Weakness (principal); R53.83 Other fatigue; I10 Essential (primary) hypertension; J45.909 Unspecified asthma, uncomplicated; Z21 Asymptomatic human immunodeficiency virus [HIV] infection status; Z79.899 Other long term (current) drug therapy
CPT/HCPCS: 36415; 71046; 80053; 80061; 81001; 82550; 83735; 84443; 84484; 85025; 93005

== ENCOUNTER 2021-12-10 11:33 | Emergency (ER) | payer MEDICARE ==
[2021-12-10 11:37] VITALS: BP 144/70
== END 2021-12-10 13:35 | disposition left against medical advice (07) ==
LOC: ED 11:33
DX: R06.02 Shortness of breath (principal); Z53.21 Procedure and treatment not carried out due to patient leaving prior to being seen by health care provider